=== PATIENT | male | born 1985 | race Caucasian/White ===

== ENCOUNTER 2020-09-25 12:21 | Emergency (ER) | payer OTHER ==
[2020-09-25] VITALS (8 sets, daily range): BP systolic 92–134; BP diastolic 56–76
[~2020-09-25] VITALS: Ht 172.7 cm; Wt 72.7 kg
[~2020-09-25 12:21] MED LIST: IBUP-1984 PO
[2020-09-25] MEDS ORDERED: ondansetron/PF 4mg/2ml inj IV ONE (12:45)
[2020-09-25] MEDS ORDERED: glucagon, human recombinant 1mg kit IV ONE (12:45)
[2020-09-25] MEDS ORDERED: normal saline 1000ml 1,000 ML IV ONE (12:45)
--- NOTE | 2020-09-25 14:20 | NUR ---
TO [facility]IA [facility]
[2020-09-25] MEDS ORDERED: fentaNYL/PF 50MCG/1 ML 2ML syringe ONE ×2 (14:32→15:29)
[2020-09-25] MEDS ORDERED: MIDAZolam 5mg/5ml vial ONE ×2 (14:32→15:30)
[2020-09-25] MEDS ORDERED: LIDOcaine Viscous 15ml cup ONE (14:32)
[2020-09-25] MEDS ORDERED: OMEP-50 PO (16:47)
--- NOTE | 2020-09-25 16:49 | NUR ---
Pt back from EGD. Meat bolus removed as well as biopsies performed. Pt to follow up on biopsies in a few days.
== END 2020-09-25 17:04 | disposition home or self-care (01) ==
LOC: ER 12:22
DX: T17.228A Food in pharynx causing other injury, initial encounter (principal); Z90.89 Acquired absence of other organs; Z98.890 Other specified postprocedural states; Z88.8 Allergy status to other drugs, medicaments and biological substances; Z79.899 Other long term (current) drug therapy; X58.XXXA Exposure to other specified factors, initial encounter; Y93.89 Activity, other specified; Y92.89 Other specified places as the place of occurrence of the external cause; Y99.8 Other external cause status
CPT/HCPCS: 43239; 43247; 96374; 96375; 99152; 99153; 99285; C1773; J1610; J2250; J2405; J3010; J7030; J7040; 99284; A4620

== ENCOUNTER 2021-11-06 22:53 | Emergency (ER) | payer MEDICAID ==
[~2021-11-06] VITALS: Ht 170.2 cm; Wt 72.0 kg
[~2021-11-06 22:53] MED LIST changes: -IBUP-1984 PO; +OMEP20CA16 PO
[2021-11-07] MEDS ORDERED: PRED50TA PO (00:05)
[2021-11-07] MEDS ORDERED: predniSONE 20 mg tablet PO ONE (00:10)
[2021-11-07 00:18] VITALS: BP 128/78
== END 2021-11-07 00:20 | disposition home or self-care (01) ==
LOC: ER 22:53
DX: L23.7 Allergic contact dermatitis due to plants, except food (principal); Z90.89 Acquired absence of other organs; Z98.890 Other specified postprocedural states; Z88.8 Allergy status to other drugs, medicaments and biological substances; Z79.899 Other long term (current) drug therapy
CPT/HCPCS: 99283; J7512

== ENCOUNTER 2022-02-21 11:55 | Emergency (ER) | payer MEDICAID ==
[~2022-02-21] VITALS: Ht 172.7 cm; Wt 63.8 kg
[~2022-02-21 11:55] MED LIST changes: +PRED50TA PO
[2022-02-21 12:55] VITALS: BP 151/91
[2022-02-21 13:16] LABS: BASOPHILS # (AUTO) 0.1 X10'3 (0-0.2); BASOPHILS % (AUTO) 1.2 % (0-1); EOSINOPHILS # (AUTO) 1.1 X10'3 (0-0.9); HEMOGLOBIN 14.4 g/dl (14.0-17.9); LYMPHOCYTES # (AUTO) 1.7 X10'3 (1.1-4.8); LYMPHOCYTES % (AUTO) 26.6 % (21-51); MEAN CORPUSCULAR HEMOGLOBIN 31.9 PG (27.0-31.0); MEAN CORPUSCULAR HGB CONC 34.3 g/dL (33.0-36.5); MEAN CORPUSCULAR VOLUME 93.1 FL (78-98); MEAN PLATELET VOLUME 6.8 FL (7.4-10.4); MONOCYTES # (AUTO) 0.6 X10'3 (0-0.9); MONOCYTES % (AUTO) 8.7 % (2-12); NEUTROPHILS # (AUTO) 2.9 X10'3 (1.8-7.7); NEUTROPHILS % (AUTO) 46.5 % (42-75); PLATELET COUNT 283 X10'3 (140-440); RED BLOOD COUNT 4.51 X10'6 (4.70-6.10); RED CELL DISTRIBUTION WIDTH 12.8 % (11.5-14.5); WHITE BLOOD COUNT 6.3 X10'3 (4.5-11.0)
[2022-02-21 13:30] LABS: ALANINE AMINOTRANSFERASE 29 U/L (12-78); ALBUMIN/GLOBULIN RATIO 1.3 (1.1-1.5); ALKALINE PHOSPHATASE 58 IU/L (46-116); ANION GAP 8 (8-16); ASPARTATE AMINO TRANSFERASE 23 U/L (10-37); BILIRUBIN,TOTAL 0.5 MG/DL (0.1-1.0); BLOOD UREA NITROGEN 12 MG/DL (7-18); BUN/CREATININE RATIO 12.8 (5.4-32.0); CALCIUM 8.9 MG/DL (8.5-10.1); CHLORIDE 104 MMOL/L (99-107); CREATININE 0.94 MG/DL (0.60-1.10); GLUCOSE 97 MG/DL (70-104); LIPASE 308 U/L (73-393); POTASSIUM 4.4 MMOL/L (3.5-5.1); SODIUM 138 MMOL/L (135-145); TOTAL CARBON DIOXIDE 25.8 MMOL/L (24-32); TOTAL PROTEIN 7.1 G/DL (6.4-8.2); eGFR 90 ML/MIN
== END 2022-02-21 19:26 | disposition left against medical advice (07) ==
LOC: ER 11:55
DX: R10.9 Unspecified abdominal pain (principal); Z53.21 Procedure and treatment not carried out due to patient leaving prior to being seen by health care provider
CPT/HCPCS: 36415; 80053; 83690; 85025

== ENCOUNTER 2022-03-04 09:34 | Outpatient (CLI) | payer MEDICAID | END 2022-03-04 23:59 | disposition home or self-care (01) | LOC: RAD 09:34 | PROVIDERS: ATTEND Family Medicine | DX: K45.8 Other specified abdominal hernia without obstruction or gangrene (principal); Z98.890 Other specified postprocedural states | CPT/HCPCS: 74150 ==

== ENCOUNTER 2024-09-07 20:23 | Emergency (ER) | payer MEDICAID ==
[~2024-09-07] VITALS: Ht 172.7 cm; Wt 68.3 kg
[2024-09-07 20:48] VITALS: BP 122/70; PULSE 82; RESP 16; O2SAT 96
[2024-09-07] MEDS: dexamethasone sod phosphate 10mg/ml inj PO STA (21:44)
[2024-09-07] MEDS ORDERED: DOXY100C43 PO (22:01)
[2024-09-07] MEDS: DOXYCYCLINE 100MG CAPSULE PO STA (22:16)
[2024-09-07 22:17] VITALS: TEMP 98.5
== END 2024-09-07 22:18 | disposition home or self-care (01) ==
LOC: ER 20:24
DX: J20.9 Acute bronchitis, unspecified (principal); R51.9 Headache, unspecified; F17.290 Nicotine dependence, other tobacco product, uncomplicated; Z88.8 Allergy status to other drugs, medicaments and biological substances; Z90.49 Acquired absence of other specified parts of digestive tract; Z98.890 Other specified postprocedural states; Z79.899 Other long term (current) drug therapy; Z20.822 Contact with and (suspected) exposure to COVID-19
CPT/HCPCS: 36415; 71046; 87502; 87503; 87811; 99284; J1100

== ENCOUNTER 2024-11-15 13:12 | Emergency (ER) | payer MEDICAID ==
[2024-11-15] VITALS (21 sets, daily range): BP systolic 87–140; BP diastolic 46–77; PULSE 64–100; RESP 10–19; TEMP 98.4; O2SAT 93–100
[~2024-11-15] VITALS: Ht 170.2 cm; Wt 64.5 kg
[~2024-11-15 13:12] MED LIST changes: +ketamine 10mg/ml 20ml inj vial IV ONE; +propofol (Diprivan) 10mg/ml 100ml bottle IV ONE
[2024-11-15] MEDS ORDERED: nitroGLYCERIN 0.4mg SUBLingual tab SL PRN (14:10)
[2024-11-15] MEDS: nitroGLYCERIN 0.4mg SUBLingual tab SL ONE (14:18)
[2024-11-15] MEDS ORDERED: glucagon, human recombinant 1mg kit IM ONE (14:30)
[2024-11-15] MEDS: ondansetron/PF 4mg/2ml inj IV ONE (14:36)
[2024-11-15] MEDS: diazepam inj 5 MG/ML inj. IV ONE (14:38)
[2024-11-15] MEDS: glucagon, human recombinant 1mg kit IV ONE (14:44)
[2024-11-15] MEDS: normal saline 1000ML IV soln IVB ONE (15:06)
[2024-11-15] MEDS ORDERED: LIDOcaine 2% Viscous 15ml cup ONE (17:50)
[2024-11-15] MEDS ORDERED: MIDAZolam 1 MG/ML 5ML VIAL ONE ×2 (17:52→18:15)
[2024-11-15] MEDS ORDERED: fentaNYL/PF 50MCG/1 ML 2ML syringe ONE ×3 (17:52→18:19)
[2024-11-15] MEDS: propofol 1000mg/100ml bottle 100 ML IV ONE (18:53)
[2024-11-15] MEDS ORDERED: SUCR1ORA12 PO (22:13)
[2024-11-15] MEDS ORDERED: OMEP20TA43 PO (22:13)
[2024-11-15] MEDS: ondansetron 4mg rapidly disintigrating tab PO ONE (23:19)
== END 2024-11-15 23:21 | disposition home or self-care (01) ==
LOC: ER 13:13
DX: T18.128A Food in esophagus causing other injury, initial encounter (principal); F17.290 Nicotine dependence, other tobacco product, uncomplicated; Z90.49 Acquired absence of other specified parts of digestive tract; Z88.8 Allergy status to other drugs, medicaments and biological substances; Z79.899 Other long term (current) drug therapy; Z98.890 Other specified postprocedural states; W44.F3XA Food entering into or through a natural orifice, initial encounter; Y93.89 Activity, other specified; Y92.89 Other specified places as the place of occurrence of the external cause; Y99.8 Other external cause status
CPT/HCPCS: 43239; 43247; 93005; 96361; 96374; 96375; 99285; J1610; J2250; J2405; J2704; J3010; J3360; J3490; J7030; Z7512; 99152; 99153; A4620; C1889